=== PATIENT | female | born 1975 | race Caucasian/White ===

== ENCOUNTER 2023-10-22 14:55 | Day surgery (SDC) | payer OTHER, SELFPAY ==
[2023-10-22 10:30] VITALS: BP 140/90
[2023-10-22 10:41] LABS: Urine Albumin Negative (Neg - Trace); Urine Bilirubin Negative (Negative); Urine Character Clear (Clear); Urine Color Yellow; Urine Glucose Negative (Negative); Urine Ketone Negative (Negative); Urine Leukocyte Negative (Negative); Urine Nitrite Negative (Negative); Urine Occult Blood Trace (Negative); Urine Urobilinogen Negative (Neg - 1+)
[2023-10-22 10:54] LABS: Urine Bacteria Few (Negative); Urine White Cell 0-2 /HPF (0-5)
[2023-10-22 11:17] VITALS: BMI 27.7
--- NOTE | 2023-10-22 11:31 | ED.GENMED ---
History of Present Illness
General
Chief Complaint: Flank Pain
Source: patient
Exam Limitations: none
Time Seen by Provider: 10/22/23 11:04
Nursing documentation reviewed up to this point in time: agreed with
Travel History
Have you had any contact with someone who has COVID-19?: No
Do you have any symptoms of coronavirus? Fever > 100 degrees, chills, cough, shortness of breath, sore throat, loss of taste or smell, muscle aches, or headache?: No
History of Present Illness
History of Present Illness:
pt is a 48 y/o F with h/o benign brain meningioma s/p gamma knife 2017, lumbar fusion 2017
tonia, appe
here with 5 days mild left flank discomfort that felt like a soreness; she wasnt' sure if it was musculoskeletal but then today started having urinary frequency/urgency and feels very uncomfortable in her bladder, feels it is full and has to keep
tryin to use the bathroom
she has no keke fever, chills, vomiting, diarrhea, constipation, hematuria.
knows she has kidney stones but has never knowingly passed one.
Past History
Past History
ED Past Medical History: Other (Endometriosis, ) and Other (migraines, meningioma)
ED Past Surgical History: , Gynecological (Tubal ligation) and Other (Gamma knife therapy for meningioma)
Social History
Tobacco: Non-smoker
Alcohol: Occasional
Drug: None
Personal:
Living: with family
Employment: Employed
Family History
Family History: Other (Noncontributory)
Review of Systems
Review of Systems
Allergies reviewed?: Yes
All Other Systems: Not applicable
Phy Exam
Physical Exam
Physical Exam:
GENERAL: Alert, uncomfortable, standing, shaking
Neck: supple
CARDIAC: Regular rate and rhythm .
LUNGS: Clear breath sounds bilaterally, no acute respiratory distress, no wheezes/rales/rhonchi
ABDOMEN: Soft, normal bowel sounds, nondistended, mild bladder suprapubic tendnerss;, no guarding, no rebound, neg ocampo's
back: no cva tenderness;
NEUROLOGICAL: Alert and oriented, no focal neuro deficits
SKIN: Warm and dry, skin intact.
PSYCH: Normal and appropriate interaction.
Course
Orders/Labs/Results
Orders:
Orders
10/22/23 10:30
Urinalysis Reflex To Culture Urgent
Date Specimen was Collected: 10/22/23
Time Specimen was Collected: 10:28
Urine Microscopic Reflex Cult Urgent
10/22/23 11:21
CT Abd/pel Without Iv Or Oral Urgent
Comment:
Reason For Exam: left flank pain, urinary pressure
0.9% Sodium Chloride 1000 ml [Nss] 1,000 ml IV BOLUS
Ketorolac [Toradol] 15 mg IV NOW STA
Phenazopyridine HCl [Pyridium] 200 mg PO NOW STA
10/22/23 11:22
Bladder Scan- Treatment ONCE
10/22/23 11:25
Test Result ONCE
10/22/23 11:29
Complete Blood Count/With Diff Urgent
Comprehensive Metabolic Panel Urgent
HCG, Serum Qualitative Screen Urgent
Lipase Urgent
10/22/23 12:19
HYDROmorphone [Dilaudid] 0.5 mg IV NOW STA
10/22/23 13:15
HYDROmorphone [Dilaudid] 0.5 mg IV NOW STA
Abnormal Lab Results
10/22/23 10/22/23
10:30 11:29
Sodium 134 L mmol/L
(135-145)
BUN 21 H mg/dl
(7-17)
Ur Occult Blood Reflex Trace A
(Negative)
Urine RBC 7-10 A /HPF
(0-2)
Urine Bacteria (Reflex) Few A
(Negative)
10/22/23 11:29
10/22/23 11:29
Vital Signs
Initial and Last Documented VS:
Initial Vital Signs
Temp Pulse Resp BP Pulse Ox
98.1 F 79 16 140/90 99
10/22/23 10:30 10/22/23 10:30 10/22/23 10:30 10/22/23 10:30 10/22/23 10:30
Last Documented Vital Signs
Temp Pulse Resp BP Pulse Ox
98.1 F 68 18 117/78 100
10/22/23 10:30 10/22/23 12:50 10/22/23 12:50 10/22/23 12:50 10/22/23 12:50
MDM/Problems Addressed
Differential Diagnosis Includes:
kidney stone, UTI, pyelo
MDM/Problems Addressed:
48 y/o F with L flank pain x5 days and now worsening urianry frequency, urgency, suprapubic fullness
no fever, vomiting, dysuria
pt cannot get comfortable
she is back and forth to the bathroom frequently and anxious
tender suprapubic
bladder scan nomral, no retention
no fever, wbc normal, cr normal, ct shows 2 stones, prox L ureter 8x 5 mm and distal 4x6 mm
has required multiple rounds of pain meds to get comfortable
d/w dr. ambrose junior automation engineer for uro who will admit and take pt to OR tomorrow.
*Critical Care Note
Total Time (30-74mins, 75-104mins- exclusive of procedures): Not Applicable
ED Attending Note
-
Portions of this chart may have been created with voice recognition software.� Occasional wrong word or��sound alike� substitutions may have occurred due to the inherent limitations of voice recognition software.
Discharge Plan
Departure
Patient Disposition: Admit
Date of Disposition: 10/22/23
Time of Disposition: 13:58
Admit to: Med/Surg
Admit to doctor: halie
Presentation/result/management discussed w/ accepting MD/DO: halie
Patient with high blood pressure during this ER visit?: No
Condition: Fair
Covid-19: Not Applicable
Discharge Problem:
Ureterolithiasis, Hydronephrosis
Prescriptions:
No Action
naproxen sodium 220 mg Tablet
220 mg PO BID PRN (Reason: mild pain)
magnesium oxide 500 mg magnesium Tablet
500 mg PO HS
Referrals:
Vaishnavi Alcaraz MD [Family Provider] -
Interventions
Interventions:
*Risk Screen - Suicide Last Done: 10/22/23 10:30
*General Assessment Last Done: 10/22/23 10:30
*Neglect/Abuse Screening Last Done: 10/22/23 10:30
*ED COVID-19 Vaccine History Last Done: 10/22/23 11:17
JY-Tacmhn-Nbtyvtqete Assessment Last Done: 10/22/23 11:25
ED-Female Genitourinary Assessment Last Done: 10/22/23 11:25
[2023-10-22] MEDS: Pyridium 200 MG PO (11:35)
[2023-10-22] MEDS: NSS 1000 IV (11:36)
[2023-10-22] MEDS: TORADOL 15 MG IV ×3 (11:36→20:56)
[2023-10-22 11:55] LABS: % Basophils 0.8 % (0-2); % Eosinophils 3.1 % (0-6); % Immature Granulocytes 0.2 % (0-0.5); % Monocytes 7.5 % (1.7-9.3); % Neutrophils 47.4 % (42.2-75.2); Absolute Eosinophils 0.2 10^3/uL (0-0.7); Absolute Monocytes 0.4 10^3/uL (0.1-0.6); Absolute Neutrophils 2.3 10^3/uL (1.4-6.5); Hematocrit 39.8 % (37.0-47.0); Hemoglobin 13.8 g/dL (12.0-16.0); Mean Corp Hgb Conc. 34.7 g/dL (33.0-37.0); Mean Corpuscular Hgb 29.4 pg (27.0-31.0); Mean Corpuscular Volume 84.9 fL (81.0-99.0); Nucleated Red Blood Cells % 0 %; Platelet Count 227 10^3/uL (130-400); Red Blood Cell Count 4.69 10^6/uL (4.20-5.40); Red Cell Dist. Width 12.2 % (11.5-14.5); White Blood Cell Count 4.8 10^3/uL (4.8-10.8)
[2023-10-22 12:14] LABS: HCG, Serum Qualitative Screen Negative
[2023-10-22 12:16] LABS: ALT (SGPT) 19 U/L (0-35); AST (SGOT) 21 U/L (14-36); Albumin 4.2 g/dl (3.5-5.0); Alkaline Phosphatase 61 U/L (38-126); Blood Urea Nitrogen 21 mg/dl (7-17); Calcium 9.3 mg/dl (8.4-10.2); Carbon Dioxide 24 mmol/L (22-30); Chloride 105 mmol/L (98-107); Estimated Creatinine Clearance 100 ml/min; Glucose 98 mg/dl (70-99); Lipase 88 U/L (23-300); Potassium 4.8 mmol/L (3.5-5.1); Sodium 134 mmol/L (135-145); Total Bilirubin 0.9 mg/dl (0.2-1.3); Total Protein 6.4 g/dl (6.3-8.2); eGFR > 60.00
[2023-10-22] MEDS: DILAUDID 0.5 MG IV ×2 (12:25→13:19)
[2023-10-22 12:50] VITALS: BP 117/78
--- NOTE | 2023-10-22 16:00 | HP.FOC2 ---
Focused History & Physical
Chief Complaint
HPI:
Chief Complaint: Left Ureteral and Renal calculi; intractable pain
HPI / Indication for Planned Procedure:
5 days mild left flank discomfort; today started having pelvic cramping and urinary frequency/urgency
presented to ED
Relevant Past Medical History: Other (Endometriosis, migraines; obesity --> purposeful 100 lb weight loss over past 2 years)
Relevant Social History: Negative
Relevant Family History: Negative
Relevant Past Surgical History: Positive for (benign brain meningioma s/p gamma knife 2017, lumbar fusion 2018 tonia, appe)
Review of Systems
Review of Pertinent Systems: All Systems Negative Except for the Following Positives (abdominal pain, irritative voiding symptoms)
Medication
See Medication form for detailed medications: Yes
Medication List (including Herbals & OTC):
magnesium oxide 500 mg PO HS Supplement 10/22/23
naproxen sodium 220 mg tablet 220 mg PO BID PRN mild pain 10/22/23
Medications Reviewed: Yes
Allergies and Reactions
Patient has Allergies: Yes
Noted Allergies and Reactions:
Allergy/AdvReac Type Severity Reaction Status Date / Time
Iodinated Contrast Media Allergy Hives Verified 10/22/23 10:30
[IV Dye, Iodine Containing]
meperidine Allergy vomiting Verified 10/22/23 10:30
Pertinent Physical Exam
All Other Systems: Negative
Head/Neck: Normal
Lungs: Normal
Heart: Normal
Abdomen: Normal
Extremities: Normal
Neurological: Normal
Diagnosis / Assessment
Left ureteral calculi -- distal and proximal
intractable pain
Plan / Procedure
posted for OR in AM: left ureteroscopy, laser lithotripsy, stenting; consent signed
Anesthesia/Sedation to be done by Anesthesia Provider: Yes
[2023-10-22 16:24] VITALS: BP 101/71
[2023-10-22 16:30] VITALS: BP 101/71
[2023-10-22 16:39] VITALS: BMI 27.4
[2023-10-22] MEDS: NORMOSOL-R 1000 IV (16:54)
[2023-10-22] MEDS: LOVENOX 40 MG SC (16:58)
--- NOTE | 2023-10-22 17:19 | PTCARENOTE ---
Received from ED into room 2106. AOx3. VSS. Independently ambulatory. Oriented to plan of care and room.
[2023-10-22] MEDS: DETROL 4 MG PO (18:14)
[2023-10-22] MEDS: PERCOCET 5/325 2 TABLET PO (19:55)
[2023-10-22] MEDS: FLOMAX 0.400000000000000022 MG PO (20:56)
[2023-10-22 22:45] VITALS: BP 102/61
[2023-10-23] VITALS (14 sets, daily range): BP systolic 92–116; BP diastolic 58–87
[2023-10-23] MEDS: PERCOCET 5/325 2 TABLET PO ×2 (00:25→07:28)
[2023-10-23] MEDS: VALIUM 2 MG PO (02:30)
[2023-10-23] MEDS: TORADOL IV (04:36)
[2023-10-23] MEDS: DETROL 4 MG PO (07:28)
[2023-10-23] MEDS: MORPHINE SULFATE 4 MG IV (09:30)
[2023-10-23] MEDS: TORADOL 15 MG IV ×2 (10:18→16:34)
--- NOTE | 2023-10-23 11:16 | PTCARENOTE ---
Patient transported to OR by transport staff at this time.
[2023-10-23] MEDS: ANCEF 10 IV (12:31)
[2023-10-23] MEDS: DILAUDID 0.5 MG IV ×2 (13:40→14:02)
[2023-10-23] MEDS: Pyridium 200 MG PO (13:42)
[2023-10-23] MEDS: VALIUM INJECTION 5 MG IV (14:36)
--- NOTE | 2023-10-23 16:06 | CM ---
Chart reviewed. Spoke with pt and at bedside
Lives with and children in 2 story home
Independent, drives
Denies past DME/SNF/HH
PCP - [facility]
Pharm - [facility]
Has ride at d/c
Plan - anticipate home - no needs
--- NOTE | 2023-10-23 16:06 | PTCARENOTE ---
Received from PACU, drowsy but arousable, VSS. Complains of migraine pain. Denies flank/lower abd pain. Voided 400ml bloody urine. Weaned to room air, now 96% on room air. Patient awaiting meal tray. Eager for discharge.
[2023-10-23] MEDS: NORMOSOL-R IV (16:53)
--- NOTE | 2023-10-23 17:59 | PTCARENOTE ---
Patient called after being discharged, reported that prescription Gemtesa 'is hundreds of dollars' and wanted to know if there was a cheaper alternative medication. Dr. Cat notified via tiger text. This RN recommend patient call urology
office in morning and relay information.
== END 2023-10-23 17:00 | disposition home or self-care (01) ==
LOC: PACU 14:55
PROVIDERS: Physician Assistant; ATTENDING PHYSICIAN Specialist; EMERGENCY PHYSICIAN Emergency Medicine; FAMILY PHYSICIAN Internal Medicine
DX: N20.1 Calculus of ureter (principal)
CPT/HCPCS: 52356; 74018; 74176; 76000; 80053; 81003; 81015; 83690; 84703; 85025; 96361; 96374; 96375; 96376; 99285; C1894; C2617

== ENCOUNTER → 2024-04-28 11:48 | Outpatient (REF) | payer OTHER, SELFPAY | LOC: PAVMRI 11:48 | PROVIDERS: ATTENDING PHYSICIAN Nurse Practitioner Adult Health | DX: D32.9 Benign neoplasm of meninges, unspecified (principal) | CPT/HCPCS: 70553; A9575 ==

== ENCOUNTER → 2025-04-19 10:07 | Outpatient (REF) | payer OTHER, SELFPAY | LOC: RAD 10:07 | PROVIDERS: ATTENDING PHYSICIAN Specialist; FAMILY PHYSICIAN Nurse Practitioner Adult Health | DX: N20.0 Calculus of kidney (principal) | CPT/HCPCS: 74018 ==

== ENCOUNTER 2025-04-21 06:13 | Day surgery (SDC) | payer OTHER, SELFPAY ==
[2025-04-21] VITALS (18 sets, daily range): BP systolic 90–129; BP diastolic 43–102; BMI 28.3
[2025-04-21] MEDS: NORMOSOL-R/PLASMALYTE-A 1000 IV (11:43)
[2025-04-21 11:45] LABS: Hematocrit 40.6 % (37.0-47.0); Hemoglobin 13.9 g/dL (12.0-16.0); Mean Corp Hgb Conc. 34.2 g/dL (33.0-37.0); Mean Corpuscular Volume 88.1 fL (81.0-99.0); Platelet Count 199 10^3/uL (130-400); Red Cell Dist. Width 12.7 % (11.5-14.5)
[2025-04-21 12:40] LABS: ALT (SGPT) 11 U/L (0-35); AST (SGOT) 15 U/L (14-36); Albumin 3.5 g/dl (3.5-5.0); Alkaline Phosphatase 35 U/L (38-126); Blood Urea Nitrogen 14 mg/dl (7-17); Calcium 8.6 mg/dl (8.4-10.2); Carbon Dioxide 25 mmol/L (22-30); Chloride 107 mmol/L (98-107); Estimated Creatinine Clearance 115 ml/min; Glucose 81 mg/dl (70-99); Potassium 4.2 mmol/L (3.5-5.1); Sodium 135 mmol/L (135-145); Total Protein 5.7 g/dl (6.3-8.2); eGFR > 60.00
[2025-04-21] MEDS: DILAUDID 0.5 MG IV ×6 (15:22→22:12)
[2025-04-21] MEDS: VALIUM INJECTION 5 MG IV ×2 (15:34→16:56)
[2025-04-21] MEDS: FLOMAX 0.4 MG PO (16:06)
--- NOTE | 2025-04-21 16:50 | W.PN.UPDATE ---
Update Note
Progress Note Update
pt experiencing intractable right flank/stent pain and requests overnight admission to control pain.
[2025-04-21] MEDS: TORADOL 30 MG IV (16:54)
--- NOTE | 2025-04-21 16:56 | W.PN.UPDATE ---
Update Note
Progress Note Update
I spoke with , Nathaniel, by phone to apprise him with his 's status and joint decision for her to stay overnight for pain control. He responded, 'I should have been contacted earlier, so just fuck off!'
I alerted patient that I would no longer be in communication with her .
--- NOTE | 2025-04-21 17:40 | SUR.PHASEI ---
Dr Ness asked to order continuous pulse ox for floor due to amount of narcotics given in pacu.
[2025-04-21] MEDS: LOVENOX 40 MG SC (18:22)
--- NOTE | 2025-04-21 18:27 | PTCARENOTE ---
pt received from pacu to room 2119. AAOX3. right flank pain. pt ambulated to bathroom and voided. admission questions completed. at bedside. pt updated on plan of care.
[2025-04-21] MEDS: PERCOCET 5/325 2 TABLET PO ×2 (19:37→23:46)
[2025-04-21] MEDS: TORADOL 15 MG IV (23:45)
[2025-04-21] MEDS: MELATONIN 10 MG PO (23:46)
[2025-04-22] MEDS: DILAUDID 0.5 MG IV (02:46)
[2025-04-22] MEDS: VALIUM INJECTION 5 MG IV (02:46)
--- NOTE | 2025-04-22 02:59 | PTCARENOTE ---
once again severe rt flank pain and feelings of spasms. medicated with prn's see lucila
[2025-04-22 03:00] VITALS: BP 101/46
[2025-04-22] MEDS: TORADOL 15 MG IV (05:06)
[2025-04-22] MEDS: PERCOCET 5/325 2 TABLET PO ×2 (05:10→09:09)
[2025-04-22 08:00] VITALS: BP 96/56
--- NOTE | 2025-04-22 09:28 | W.PN.URO.CBU ---
Today's Communication / Plan
-
discharge
Assessment / Plan
-
stable
Diagnosis
-
Date of Service: April 22, 2025
-
Patient Diagnosis: right kidney stone s/p ureteroscopy, laser lith, stenting
Post Op Day: 1
Subjective
-
improved pain
Objective
-
Vital Signs
Temp Pulse Resp BP Pulse Ox
97.6 F 64 16 96/56 96
04/22/25 08:00 04/22/25 08:00 04/22/25 08:00 04/22/25 08:00 04/22/25 08:00
Intake and Output
04/21/25 04/22/25 04/23/25
06:59 06:59 06:59
Intake Total 1320 / 1320
Balance 1320 / 1320
Intake:
Oral fluids 720 / 720
IV fluids (Total) 600 / 600
Normosol 600 / 600
Other:
Number of approximated MODERATE 1
amounts of urine
Laboratory Results
04/21/25 11:32
04/21/25 12:06
Physical Exam
-
General - well developed, well nourished, no acute distress
Chest - clear bilaterally
Abdomen - soft, non-tender, positive bowel sounds, no distention
Skin - warm & dry with no rash
Neuro - AOx3, no motor deficits
Extremities - no clubbing, no cyanosis, no edema
--- NOTE | 2025-04-22 10:05 | CM ---
CM met with patient. Patient is otherwise independent with all needs. Plan for return home with .
PLAN: home no needs.
[2025-04-22 11:53] VITALS: BP 98/59
== END 2025-04-22 12:33 | disposition home or self-care (01) ==
LOC: SDS 06:13
PROVIDERS: ATTENDING PHYSICIAN Specialist
DX: N20.0 Calculus of kidney (principal); R31.0 Gross hematuria
CPT/HCPCS: 52356; 74420; 76000; 80053; 85027; 93005; C1894; C2617

== ENCOUNTER → 2025-06-07 13:46 | Outpatient (REF) | payer OTHER, SELFPAY | LOC: RAD 13:46 | PROVIDERS: ATTENDING PHYSICIAN Nurse Practitioner Adult Health | DX: M79.631 Pain in right forearm (principal) | CPT/HCPCS: 93971 ==

== ENCOUNTER → 2025-06-24 09:56 | Outpatient (REF) | payer OTHER, SELFPAY | LOC: EMG 09:56 | PROVIDERS: ATTENDING PHYSICIAN Nurse Practitioner Adult Health | DX: R20.2 Paresthesia of skin (principal); M79.601 Pain in right arm; R20.0 Anesthesia of skin | CPT/HCPCS: 95886; 95909 ==